=== PATIENT | male | born 1965 | race African-American/Black ===

== ENCOUNTER 2020-06-09 15:37 | Inpatient (IN) | payer BC ==
[~2020-06-09] VITALS: Ht 180.3 cm; Wt 179.2 kg
[2020-06-09 17:07] LABS: BASOPHILS % 0.4 % (0.0-2.0); EOSINOPHILS % 1.2 % (0.0-5.0); HEMATOCRIT. 38.8 % (42.0-52.0); HEMOGLOBIN. 12.7 g/dL (14.0-18.0); LYMPHOCYTES % 11.1 % (20.0-50.0); MEAN CORPUSCULAR HEMOGLOBIN 27.5 pg (28.0-32.0); MEAN CORPUSCULAR VOLUME 84.2 fL (80.0-94.0); MONOCYTES % 6.5 % (2.0-8.0); NEUTROPHILS % 80.8 % (40.0-76.0); PLATELET 203 x1000/uL (130-400); RED BLOOD CELL COUNT 4.61 mill/uL (4.7-6.1); RED CELL DISTRIBUTION WIDTH 15.7 % (11.6-14.6)
[2020-06-09 17:10] LABS: CHLORIDE 107 mEq/L (98-107)
[2020-06-09 17:13] LABS: PROTHROMBIN TIME 11.1 sec (9.6-11.0)
[2020-06-09] MEDS ORDERED: ASPIRIN 81MG TABLET PO ONE (17:45)
[2020-06-09] MEDS ORDERED: FUROSEMIDE 20MG/2ML VIAL IVP NR (20:30)
[2020-06-09] MEDS ORDERED: NITROGLYCERIN 0.4MG TABLET SL SL ONE (20:45)
[2020-06-09] MEDS ORDERED: NITROGLYCERIN OINT 1GM/INCH UDPKT TD ONE (20:45)
[2020-06-09] MEDS ORDERED: ZOLPIDEM TARTRATE 5MG TABLET PO PRN (21:00)
[2020-06-09] MEDS ORDERED: GUAIFENESIN 200MG/10ML SUGAR FREE UDC PO PRN (21:00)
[2020-06-09] MEDS ORDERED: DIPHENHYDRAMINE 50MG/ML VIAL IV PRN (21:00)
[2020-06-09] MEDS ORDERED: HYDRALAZINE 20MG/ML VIAL IV PRN (21:00)
[2020-06-09] MEDS ORDERED: DOCUSATE SODIUM 100MG CAPSULE PO PRN (21:00)
[2020-06-09] MEDS ORDERED: ACETAMINOPHEN 325MG TABLET PO PRN (21:00)
[2020-06-09] MEDS ORDERED: ONDANSETRON HCL 4MG/2ML INJ IV PRN (21:00)
[2020-06-09] MEDS ORDERED: MAGNESIUM/ALUMINUM HYDROXIDE/SIMETHICONE 30ML UDC PO PRN (21:00)
[2020-06-09] MEDS ORDERED: FUROSEMIDE 40MG/4ML VIAL IVP SCH (22:00)
[2020-06-09] MEDS: HYDRALAZINE HCL 100MG TABLET PO SCH (22:31)
[2020-06-09] MEDS: ENOXAPARIN 40MG/0.4ML SYR SUBCUT SCH (22:32)
[2020-06-09] MEDS ORDERED: IOHEXOL-350 100 ML BOTTLE ONE (23:17)
[2020-06-10] VITALS (7 sets, daily range): BP systolic 140–188; BP diastolic 77–103
[2020-06-10] MEDS: CARVEDILOL 12.5MG TABLET PO SCH ×3 (02:00→21:03)
[2020-06-10] MEDS: ISOSORBIDE DINITRATE 20MG TABLET PO SCH ×4 (02:00→21:02)
[2020-06-10] MEDS ORDERED: LISI10TA26 MT (03:10)
[2020-06-10] MEDS: CLONIDINE 0.1MG TABLET PO PRN (03:20)
[2020-06-10] MEDS: HYDRALAZINE HCL 100MG TABLET PO SCH ×3 (05:07→21:03)
[2020-06-10] MEDS: SODIUM CHLORIDE 0.9% INJ 3ML FLUSH IVF SCH ×3 (05:07→21:03)
[2020-06-10] MEDS: POTASSIUM CHLORIDE 20MEQ TABLET SR PO SCH (09:02)
[2020-06-10] MEDS: ASPIRIN 81MG EC TABLET PO SCH (09:02)
[2020-06-10] MEDS: ACETAMINOPHEN 325MG TABLET PO PRN ×2 (09:03→18:03)
[2020-06-10] MEDS: ENOXAPARIN 40MG/0.4ML SYR SUBCUT SCH ×2 (09:03→21:01)
[2020-06-10] MEDS: FUROSEMIDE 40MG/4ML VIAL IVP SCH ×2 (09:04→21:02)
[2020-06-10 10:03] LABS: BASOPHILS % 0.4 % (0.0-2.0); EOSINOPHILS % 0.6 % (0.0-5.0); HEMATOCRIT. 36.8 % (42.0-52.0); HEMOGLOBIN. 11.9 g/dL (14.0-18.0); LYMPHOCYTES % 10.1 % (20.0-50.0); MEAN CORPUSCULAR HEMOGLOBIN 26.6 pg (28.0-32.0); MEAN CORPUSCULAR VOLUME 82.1 fL (80.0-94.0); MEAN PLATELET VOLUME 9.5 fl (7.4-10.4); MONOCYTES % 4.2 % (2.0-8.0); NEUTROPHILS % 84.7 % (40.0-76.0); PLATELET 222 x1000/uL (130-400); RED BLOOD CELL COUNT 4.49 mill/uL (4.7-6.1); RED CELL DISTRIBUTION WIDTH 15.6 % (11.6-14.6)
[2020-06-10 10:18] LABS: CHLORIDE 102 mEq/L (98-107)
[2020-06-10 10:27] LABS: LDL CHOLESTEROL 145 mg/dL (5-100)
[2020-06-10 10:29] LABS: HDL CHOLESTEROL 38 mg/dL (40-59)
[2020-06-10] MEDS ORDERED: DEXTROSE 50% WATER 50ML SYRINGE IV PRN (11:00)
[2020-06-10] MEDS ORDERED: POTASSIUM CHLORIDE 20MEQ TABLET SR PO NR ×2 (11:00→16:00)
[2020-06-10] MEDS: BLOOD SUGAR DIAGNOSTIC STRIP TEST SCH ×3 (11:55→21:02)
[2020-06-10] MEDS: INSULIN LISPRO 100 UNITS/ML SUBCUT SCH ×3 (12:02→21:00)
[2020-06-10] MEDS: ATORVASTATIN CALCIUM 40MG TABLET PO SCH (21:03)
[2020-06-11] VITALS: BP 120/66
[2020-06-11] MEDS: ACETAMINOPHEN 325MG TABLET PO PRN ×2 (00:33→08:54)
[2020-06-11 04:00] VITALS: BP 133/80
[2020-06-11] MEDS: ISOSORBIDE DINITRATE 20MG TABLET PO SCH (05:30)
[2020-06-11] MEDS: BLOOD SUGAR DIAGNOSTIC STRIP TEST SCH ×4 (05:30→21:00)
[2020-06-11] MEDS: SODIUM CHLORIDE 0.9% INJ 3ML FLUSH IVF SCH ×3 (05:30→22:00)
[2020-06-11] MEDS: HYDRALAZINE HCL 100MG TABLET PO SCH ×3 (05:30→22:00)
[2020-06-11] MEDS: INSULIN LISPRO 100 UNITS/ML SUBCUT SCH ×4 (05:31→20:51)
[2020-06-11 06:30] LABS: CHLORIDE 102 mEq/L (98-107)
[2020-06-11 08:00] VITALS: BP 159/93
[2020-06-11] MEDS: ASPIRIN 81MG EC TABLET PO SCH (08:53)
[2020-06-11] MEDS: CARVEDILOL 12.5MG TABLET PO SCH ×2 (08:53→20:51)
[2020-06-11] MEDS: POTASSIUM CHLORIDE 20MEQ TABLET SR PO SCH (08:54)
[2020-06-11] MEDS: FUROSEMIDE 40MG/4ML VIAL IVP SCH ×2 (08:54→20:51)
[2020-06-11] MEDS: ENOXAPARIN 40MG/0.4ML SYR SUBCUT SCH ×2 (08:55→21:00)
[2020-06-11 11:59] VITALS: BP 127/71
[2020-06-11] MEDS: SPIRONOLACTONE 25MG TABLET PO SCH ×2 (19:15→20:51)
[2020-06-11 20:00] VITALS: BP 149/86
[2020-06-11] MEDS: ATORVASTATIN CALCIUM 40MG TABLET PO SCH (20:52)
[2020-06-12] VITALS: BP 136/77
[2020-06-12 04:00] VITALS: BP 147/92
[2020-06-12] MEDS: HYDRALAZINE HCL 100MG TABLET PO SCH ×2 (05:49→14:49)
[2020-06-12] MEDS: SODIUM CHLORIDE 0.9% INJ 3ML FLUSH IVF SCH ×2 (06:00→14:49)
[2020-06-12] MEDS: BLOOD SUGAR DIAGNOSTIC STRIP TEST SCH ×3 (06:20→17:27)
[2020-06-12] MEDS: INSULIN LISPRO 100 UNITS/ML SUBCUT SCH ×3 (06:20→17:28)
[2020-06-12 08:00] VITALS: BP 175/125
[2020-06-12] MEDS: ASPIRIN 81MG EC TABLET PO SCH (08:07)
[2020-06-12] MEDS: ENOXAPARIN 40MG/0.4ML SYR SUBCUT SCH (08:07)
[2020-06-12] MEDS: POTASSIUM CHLORIDE 20MEQ TABLET SR PO SCH (08:07)
[2020-06-12] MEDS: ACETAMINOPHEN 325MG TABLET PO PRN (08:07)
[2020-06-12] MEDS: CLONIDINE 0.1MG TABLET PO PRN (08:08)
[2020-06-12] MEDS: CARVEDILOL 12.5MG TABLET PO SCH (08:08)
[2020-06-12] MEDS ORDERED: FUROSEMIDE 40MG TABLET PO SCH (09:00)
[2020-06-12 12:00] VITALS: BP 156/110
[2020-06-12 17:24] VITALS: BP 156/110
== END 2020-06-12 18:45 | disposition home or self-care (01) | DRG 280 ==
LOC: ER 15:37 → EDBD 15:37 → 8WST 20:17 → ENRESERV 06-10 00:03
PROVIDERS: ADMIT Internal Medicine; ATTEND Internal Medicine
PROC: 5A09457 Assistance with Respiratory Ventilation, 24-96 Consecutive Hours, Continuous Positive Airway Pressure (ICD-10-PCS; principal; 2020-06-10)
DX: I11.0 Hypertensive heart disease with heart failure (principal); J96.01 Acute respiratory failure with hypoxia; I21.A1 Myocardial infarction type 2; J84.9 Interstitial pulmonary disease, unspecified; E66.2 Morbid (severe) obesity with alveolar hypoventilation; I47.1 Supraventricular tachycardia; Z68.41 Body mass index [BMI] 40.0-44.9, adult; I50.33 Acute on chronic diastolic (congestive) heart failure; E78.5 Hyperlipidemia, unspecified; E87.6 Hypokalemia; I16.0 Hypertensive urgency; F12.90 Cannabis use, unspecified, uncomplicated; Z79.82 Long term (current) use of aspirin; Z79.899 Other long term (current) drug therapy; Z82.49 Family history of ischemic heart disease and other diseases of the circulatory system; Z71.3 Dietary counseling and surveillance
CPT/HCPCS: 36415; 71045; 71275; 80048; 80053; 80061; 82962; 83036; 83735; 83880; 84100; 84443; 84484; 85025; 93005; 93306; 94660; 99285; J1650; J1815; J1940; J2405; Q9967